=== PATIENT | female | born 1950 | race Caucasian/White ===

== ENCOUNTER 2019-05-29 11:27 | Inpatient (IN) ==
[2019-05-29] MEDS ORDERED: *HR* Heparin 5,000 UNIT/ML VIAL IVP PRN ×2 (13:49)
[2019-05-29] MEDS ORDERED: Naloxone 0.4 MG/ML INJ IVP PRN (13:56)
[2019-05-29] MEDS ORDERED: Heparin 25,000 UNIT/250 ML D5W 25,000 UNIT/250 ML IV.SOLN IVC SCH (14:00)
[2019-05-29] MEDS ORDERED: D5% in Water 1,000 ML IVC PRN (14:01)
[2019-05-29] MEDS ORDERED: Dextrose Gel 15 GM/37.5 ML TUBE PO PRN ×2 (14:01)
[2019-05-29] MEDS ORDERED: *HR* Dextrose 50 % in Water (Syg) 50 ML SYRINGE IVP PRN (14:01)
[2019-05-29] MEDS ORDERED: Nitroglycerin 0.4 MG TAB.SUBL SL PRN (14:23)
[2019-05-29] MEDS ORDERED: Ondansetron ODT 4 MG TAB.RAPDIS SL PRN (14:32)
[2019-05-29 14:39] LABS: Hematocrit 39.5 % (35.3-44.9); Hemoglobin 12.3 g/dL (11.5-15.4); Mean Corpuscular HGB Conc 31.1 g/dL (31.6-35.5); Mean Corpuscular Hemoglobin 28.9 pg (28.0-33.3); Mean Corpuscular Volume 92.9 fL (83.0-100.0); Mean Platelet Volume 10.8 fL (9.4-12.4); Platelet Count 295 K/mcL (140-400); Red Blood Count 4.25 M/mcL (3.82-4.97); Red Cell Distribution Width 13.7 % (11.5-14.5); White Blood Count 16.4 K/mcL (4.3-11.1)
[2019-05-29 14:42] LABS: Heparin anti-factor XA UFH 0.37 IU/mL (0.30-0.70)
[2019-05-29 14:43] LABS: INR 1.1; Prothrombin Time 12.2 Seconds (9.4-12.1)
[2019-05-29] MEDS ORDERED: Nitroglycerin 1 INCH/GM PACKET ONE (16:11)
[2019-05-29] MEDS: Nitroglycerin 0.4 MG PATCH.TD24 TD SCH (16:13)
[2019-05-29] MEDS: Insulin LISPRO 300 UNITS/3 ML VIAL SQ SCH ×2 (17:57→20:02)
[2019-05-29] MEDS ORDERED: Insulin LISPRO 300 UNITS/3 ML VIAL SQ SCH (18:00)
[2019-05-29] MEDS ORDERED: NON-FORMULARY MEDICATION 1 EACH EACH (Ondansetron Hcl [Zofran] 4 MG) PO SCH (21:00)
[2019-05-30 00:13] LABS: Amphetamine Screen,Urine Negative ng/mL (Cutoff=1000); Barbiturate Screen,Urine Negative ng/mL (Cutoff=200); Benzodiazepines Screen,Urine Negative ng/mL (Cutoff=200); Cannabinoid Screen,Urine Negative ng/mL (Cutoff = 50); Cocaine Screen,Urine Negative ng/mL (Cutoff= 300); Opiate Screen,Urine Positive ng/mL (Cutoff=300); Phencyclidine Screen,Urine Negative ng/mL (Cutoff=25)
[2019-05-30 02:32] LABS: Basophils # 0.1 K/mcL (0.0-0.2); Basophils % 0.3 %; Eosinophils # 0.2 K/mcL (0.0-0.6); Eosinophils % 0.8 %; Hematocrit 36.2 % (35.3-44.9); Hemoglobin 11.9 g/dL (11.5-15.4); Immature Granulocytes % 0.4 % (0-4); Lymphocytes # 1.5 K/mcL (0.6-4.6); Lymphocytes % 8.1 %; Mean Corpuscular HGB Conc 32.9 g/dL (31.6-35.5); Mean Corpuscular Hemoglobin 29.2 pg (28.0-33.3); Mean Corpuscular Volume 88.7 fL (83.0-100.0); Mean Platelet Volume 10.8 fL (9.4-12.4); Monocytes % 5.5 %; Neutrophils # 15.9 K/mcL (1.6-8.9); Platelet Count 279 K/mcL (140-400); Red Blood Count 4.08 M/mcL (3.82-4.97); Red Cell Distribution Width 13.7 % (11.5-14.5); Segmented Neutrophils % 84.9 %; White Blood Count 18.7 K/mcL (4.3-11.1)
[2019-05-30 02:53] LABS: BUN/Creatinine Ratio 20 (6-26); Blood Urea Nitrogen 19 mg/dL (8-23); Carbon Dioxide 26 mEq/L (23-29); Chloride 102 mEq/L (98-107); Chol/HDL Ratio 3.9 (0-4.9); Cholesterol 142 mg/dL (< 200); Glucose 125 mg/dL (70-105); HDL Cholesterol 36 mg/dL (40-59); LDL Cholesterol,Calculated 65 mg/dL (0-99); Magnesium 0.8 mg/dL (1.6-2.6); Osmolality,Calculated 290 (280-300); Potassium 3.7 mEq/L (3.5-5.1); Sodium 138 mEq/L (136-145); Triglycerides 205 mg/dL (< 150); eGFR For African Americans > 60 (> 60); eGFR For Non-African Americans 58 (> 60)
[2019-05-30] MEDS: Insulin LISPRO 300 UNITS/3 ML VIAL SQ SCH ×4 (07:36→20:41)
[2019-05-30] MEDS: Nitroglycerin 0.4 MG PATCH.TD24 TD SCH (08:58)
[2019-05-30] MEDS: Aspirin Enteric Coated 81 MG Tablet PO SCH (08:59)
[2019-05-30] MEDS: Fluticasone Propionate Nasal 50 MCG/SPRAY BOTTLE NS SCH (09:06)
[2019-05-30 09:42] LABS: Estimated Average Glucose 180 mg/dl
[2019-05-30] MEDS ORDERED: Heparin 1,000 UNITS/500 mL 500 ML ONE (13:25)
[2019-05-30] MEDS ORDERED: *HR* Heparin 10,000 UNIT/10 ML VIAL ONE (13:25)
[2019-05-30] MEDS ORDERED: ISOVUE-370 200 ML INFUS..BTL ONE ×2 (13:25→14:49)
[2019-05-30] MEDS ORDERED: Nitroglycerin 1,000 MCG/10 ML VIAL IV ONE (13:25)
[2019-05-30] MEDS ORDERED: 0.9 % Sodium Chloride 2,000 ML ONE (13:25)
[2019-05-30] MEDS ORDERED: *HR* Midazolam HCl 2 MG/2 ML VIAL ONE (13:55)
[2019-05-30] MEDS ORDERED: *HR* FentaNYL (PF) 100 MCG/2 ML VIAL ONE (13:56)
[2019-05-30] MEDS ORDERED: *HR* Ticagrelor 90 MG TABLET ONE (14:49)
[2019-05-30] MEDS ORDERED: *HR* Bivalirudin 250 MG VIAL IVC ONE (14:49)
[2019-05-30] MEDS ORDERED: 0.9 % Sodium Chloride 1,000 ML IVC SCH (15:15)
[2019-05-30] MEDS ORDERED: *HR* FentaNYL (PF) 100 MCG/2 ML VIAL IVP ONE (16:22)
[2019-05-30] MEDS ORDERED: *HR* Atropine Sulfate 1 MG/10 ML SYRINGE ONE (18:14)
[2019-05-30] MEDS: *HR* FentaNYL (PF) 100 MCG/2 ML VIAL IVP PRN ×2 (18:33→20:40)
[2019-05-31 07:23] LABS: Basophils % 0.2 %; Eosinophils # 0.1 K/mcL (0.0-0.6); Eosinophils % 0.3 %; Hematocrit 34.1 % (35.3-44.9); Hemoglobin 11.4 g/dL (11.5-15.4); Immature Granulocytes % 0.4 % (0-4); Lymphocytes # 1.5 K/mcL (0.6-4.6); Mean Corpuscular HGB Conc 33.4 g/dL (31.6-35.5); Mean Corpuscular Hemoglobin 29.4 pg (28.0-33.3); Mean Corpuscular Volume 87.9 fL (83.0-100.0); Mean Platelet Volume 10.3 fL (9.4-12.4); Monocytes # 1.4 K/mcL (0.0-1.3); Monocytes % 9.1 %; Neutrophils # 12.2 K/mcL (1.6-8.9); Platelet Count 245 K/mcL (140-400); Red Blood Count 3.88 M/mcL (3.82-4.97); Red Cell Distribution Width 13.9 % (11.5-14.5); White Blood Count 15.2 K/mcL (4.3-11.1)
[2019-05-31] MEDS: Insulin LISPRO 300 UNITS/3 ML VIAL SQ SCH ×4 (08:13→21:06)
[2019-05-31] MEDS: Aspirin Enteric Coated 81 MG Tablet PO SCH (08:14)
[2019-05-31 08:17] LABS: BUN/Creatinine Ratio 18 (6-26); Blood Urea Nitrogen 17 mg/dL (8-23); Calcium 8.1 mg/dL (8.6-10.3); Carbon Dioxide 27 mEq/L (23-29); Chloride 99 mEq/L (98-107); Glucose 147 mg/dL (70-105); Magnesium 0.9 mg/dL (1.6-2.6); Osmolality,Calculated 288 (280-300); Potassium 3.2 mEq/L (3.5-5.1); Sodium 137 mEq/L (136-145); Troponin I 30.92 ng/mL (< 0.04); eGFR For African Americans > 60 (> 60); eGFR For Non-African Americans 58 (> 60)
[2019-05-31] MEDS: Fluticasone Propionate Nasal 50 MCG/SPRAY BOTTLE NS SCH (08:18)
[2019-05-31] MEDS ORDERED: Acetaminophen 325 MG TABLET PO PRN (20:03)
[2019-06-01 01:27] LABS: Basophils # 0.1 K/mcL (0.0-0.2); Basophils % 0.3 %; Eosinophils # 0.2 K/mcL (0.0-0.6); Hematocrit 35.4 % (35.3-44.9); Immature Granulocytes % 0.4 % (0-4); Lymphocytes # 1.9 K/mcL (0.6-4.6); Lymphocytes % 11.9 %; Mean Corpuscular HGB Conc 31.1 g/dL (31.6-35.5); Mean Corpuscular Hemoglobin 28.9 pg (28.0-33.3); Mean Corpuscular Volume 92.9 fL (83.0-100.0); Mean Platelet Volume 10.4 fL (9.4-12.4); Monocytes # 1.3 K/mcL (0.0-1.3); Monocytes % 8.4 %; Neutrophils # 12.1 K/mcL (1.6-8.9); Platelet Count 214 K/mcL (140-400); Red Blood Count 3.81 M/mcL (3.82-4.97); Red Cell Distribution Width 13.9 % (11.5-14.5); White Blood Count 15.6 K/mcL (4.3-11.1)
[2019-06-01 01:43] LABS: Calcium 8.7 mg/dL (8.6-10.3); Potassium 3.4 mEq/L (3.5-5.1)
[2019-06-01] MEDS: Aspirin Enteric Coated 81 MG Tablet PO SCH (08:13)
[2019-06-01] MEDS: Insulin LISPRO 300 UNITS/3 ML VIAL SQ SCH ×4 (08:14→20:45)
[2019-06-01] MEDS: Fluticasone Propionate Nasal 50 MCG/SPRAY BOTTLE NS SCH (08:15)
[2019-06-01] MEDS: 0.9 % Sodium Chloride 1,000 ML IVC SCH (11:34)
[2019-06-01] MEDS ORDERED: 0.9 % Sodium Chloride 1,000 ML IVC SCH (16:00)
[2019-06-02] MEDS: 0.9 % Sodium Chloride 1,000 ML IVC SCH (03:19)
[2019-06-02] MEDS: Aspirin Enteric Coated 81 MG Tablet PO SCH (07:57)
[2019-06-02] MEDS: Insulin LISPRO 300 UNITS/3 ML VIAL SQ SCH ×4 (07:58→21:26)
[2019-06-02] MEDS: Fluticasone Propionate Nasal 50 MCG/SPRAY BOTTLE NS SCH (07:58)
[2019-06-02] MEDS ORDERED: 0.9 % Sodium Chloride 2,000 ML ONE (09:26)
[2019-06-02] MEDS ORDERED: Heparin 1,000 UNITS/500 mL 500 ML ONE (09:26)
[2019-06-02] MEDS ORDERED: ISOVUE-370 200 ML INFUS..BTL ONE (09:27)
[2019-06-02] MEDS ORDERED: *HR* Heparin 10,000 UNIT/10 ML VIAL ONE ×2 (09:27→10:29)
[2019-06-02] MEDS ORDERED: Nitroglycerin 1,000 MCG/10 ML VIAL IV ONE (09:27)
[2019-06-02] MEDS ORDERED: *HR* Midazolam HCl 2 MG/2 ML VIAL ONE (10:14)
[2019-06-02 10:23] LABS: Basophils # 0.1 K/mcL (0.0-0.2); Basophils % 0.4 %; Eosinophils # 0.2 K/mcL (0.0-0.6); Eosinophils % 1.6 %; Hematocrit 32.5 % (35.3-44.9); Hemoglobin 10.4 g/dL (11.5-15.4); Immature Granulocytes % 0.5 % (0-4); Lymphocytes # 1.4 K/mcL (0.6-4.6); Lymphocytes % 12.7 %; Mean Corpuscular Hemoglobin 28.8 pg (28.0-33.3); Monocytes # 0.9 K/mcL (0.0-1.3); Monocytes % 7.8 %; Neutrophils # 8.6 K/mcL (1.6-8.9); Platelet Count 261 K/mcL (140-400); Red Blood Count 3.61 M/mcL (3.82-4.97); White Blood Count 11.2 K/mcL (4.3-11.1)
[2019-06-02] MEDS ORDERED: *HR* FentaNYL (PF) 100 MCG/2 ML VIAL ONE (10:27)
[2019-06-02 10:46] LABS: BUN/Creatinine Ratio 25 (6-26); Blood Urea Nitrogen 26 mg/dL (8-23); Calcium 8.5 mg/dL (8.6-10.3); Carbon Dioxide 25 mEq/L (23-29); Chloride 104 mEq/L (98-107); Glucose 175 mg/dL (70-105); Osmolality,Calculated 299 (280-300); Potassium 3.9 mEq/L (3.5-5.1); Sodium 140 mEq/L (136-145); eGFR For African Americans > 60 (> 60); eGFR For Non-African Americans 52 (> 60)
[2019-06-02] MEDS ORDERED: 0.9 % Sodium Chloride 1,000 ML IVC SCH (12:41)
[2019-06-03 04:59] LABS: Basophils % 0.3 %; Eosinophils # 0.2 K/mcL (0.0-0.6); Eosinophils % 1.8 %; Hemoglobin 9.4 g/dL (11.5-15.4); Immature Granulocytes % 0.3 % (0-4); Lymphocytes # 1.5 K/mcL (0.6-4.6); Lymphocytes % 12.5 %; Mean Corpuscular HGB Conc 31.3 g/dL (31.6-35.5); Mean Corpuscular Hemoglobin 29.4 pg (28.0-33.3); Mean Corpuscular Volume 93.8 fL (83.0-100.0); Mean Platelet Volume 10.9 fL (9.4-12.4); Monocytes % 8.2 %; Platelet Count 236 K/mcL (140-400); Segmented Neutrophils % 76.9 %; White Blood Count 11.7 K/mcL (4.3-11.1)
[2019-06-03 05:16] LABS: BUN/Creatinine Ratio 25 (6-26); Blood Urea Nitrogen 24 mg/dL (8-23); Calcium 7.9 mg/dL (8.6-10.3); Carbon Dioxide 22 mEq/L (23-29); Chloride 103 mEq/L (98-107); Glucose 220 mg/dL (70-105); Osmolality,Calculated 293 (280-300); Potassium 3.8 mEq/L (3.5-5.1); Sodium 136 mEq/L (136-145); eGFR For African Americans > 60 (> 60); eGFR For Non-African Americans 58 (> 60)
[2019-06-03] MEDS: Insulin LISPRO 300 UNITS/3 ML VIAL SQ SCH ×2 (08:43→12:50)
[2019-06-03] MEDS: Fluticasone Propionate Nasal 50 MCG/SPRAY BOTTLE NS SCH (08:44)
[2019-06-03] MEDS ORDERED: Aspirin 81 MG TAB.CHEW PO SCH (09:00)
[2019-06-03 10:25] LABS: Hematocrit 30.9 % (35.3-44.9)
[2019-06-03 11:45] VITALS: BP 107/78
== END 2019-06-03 15:09 | disposition home or self-care (01) | DRG 247 ==
LOC: 2ANU → SUATTDRO 12:05 → 2NNU 05-30 15:22
PROVIDERS: ADMIT Internal Medicine; ATTEND Internal Medicine

== ENCOUNTER 2020-08-04 13:40 | Inpatient (IN) ==
[2020-08-04] MEDS ORDERED: Ondansetron 4 MG/2 ML VIAL IVP PRN (16:22)
[2020-08-04] MEDS ORDERED: Naloxone 0.4 MG/ML INJ IVP PRN (16:22)
[2020-08-04] MEDS ORDERED: Dextrose Gel 15 GM/37.5 ML TUBE PO PRN ×2 (16:29)
[2020-08-04] MEDS ORDERED: D5% in Water 1,000 ML IVC PRN (16:29)
[2020-08-04] MEDS ORDERED: *HR* Dextrose 50 % in Water (Vial) 50 ML VIAL IVP PRN (16:29)
[2020-08-04] MEDS: Furosemide 20 MG/2 ML VIAL IVP SCH (18:17)
[2020-08-04] MEDS: Insulin LISPRO 300 UNITS/3 ML VIAL SUBQ SCH ×2 (18:17→23:58)
[2020-08-04] MEDS: Ipratropium 1 PUFF INHALER IH SCH (20:32)
[2020-08-04] MEDS ORDERED: Insulin DETEMIR 100 UNIT/ML X5UNITS SUBQ SCH ×2 (21:00→23:15)
[2020-08-05] MEDS: Ipratropium 1 PUFF INHALER IH SCH ×7 (00:25→23:50)
[2020-08-05 01:27] LABS: Basophils # 0.1 K/mcL (0.0-0.2); Basophils % 0.2 %; Eosinophils % 0.1 %; Hematocrit 36.4 % (35.3-44.9); Hemoglobin 11.6 g/dL (11.5-15.4); Immature Granulocytes % 1.4 % (0-4); Lymphocytes # 0.6 K/mcL (0.6-4.6); Lymphocytes % 2.6 %; Mean Corpuscular HGB Conc 31.9 g/dL (31.6-35.5); Mean Corpuscular Hemoglobin 28.2 pg (28.0-33.3); Mean Corpuscular Volume 88.6 fL (83.0-100.0); Mean Platelet Volume 10.4 fL (9.4-12.4); Monocytes # 0.3 K/mcL (0.0-1.3); Monocytes % 1.4 %; Neutrophils # 21.2 K/mcL (1.6-8.9); Platelet Count 228 K/mcL (140-400); Red Blood Count 4.11 M/mcL (3.82-4.97); Red Cell Distribution Width 14.3 % (11.5-14.5); Segmented Neutrophils % 94.3 %; White Blood Count 22.5 K/mcL (4.3-11.1)
[2020-08-05 01:38] LABS: INR 1.1; Prothrombin Time 13.1 Seconds (9.4-12.1)
[2020-08-05 01:40] LABS: Activated Partial Thrombo Time 26.8 Seconds (26.0-36.0)
[2020-08-05 01:48] LABS: Platelet Estimate Normal (Normal)
[2020-08-05 01:52] LABS: Albumin 3.3 g/dL (3.5-5.7); Albumin/Globulin Ratio 0.9 (1.1-2.2); Bilirubin,Total 0.3 mg/dL (0.3-1.0); Calcium 8.1 mg/dL (8.6-10.3); Globulin 3.6 g/dL (2.4-3.5); Magnesium 1.1 mg/dL (1.6-2.6); Phosphorous 2.2 mg/dL (2.7-4.5); Potassium 4.1 mEq/L (3.5-5.1); Total Protein 6.9 g/dL (6.4-8.9)
[2020-08-05] MEDS: *HR* Enoxaparin 40 MG/0.4 ML SYRINGE SQ SCH (05:09)
[2020-08-05 08:15] LABS: ABG Base Excess 2 mEq/L (-2 to 3); ABG HCO3 25 mEq/L (21-27); ABG Oxygen Saturation 93 % (95-98); ABG PCO2 36 mmHg (35-45); ABG PH 7.46 pH Units (7.32-7.45); ABG PO2 62 mmHg (85-104); ABG TCO2 26 mEq/L (20-26)
[2020-08-05] MEDS: Insulin DETEMIR 100 UNIT/ML X5UNITS SUBQ SCH ×2 (08:35→21:30)
[2020-08-05] MEDS: Furosemide 20 MG/2 ML VIAL IVP SCH ×2 (08:36→17:00)
[2020-08-05] MEDS: Insulin LISPRO 300 UNITS/3 ML VIAL SUBQ SCH ×5 (08:37→21:27)
[2020-08-05] MEDS ORDERED: levoFLOXacin 750 MG/150 ML 750 MG/150 ML BAG IVPB SCH (09:00)
[2020-08-05] MEDS ORDERED: Dexamethasone 4 MG/ML VIAL IVP SCH ×2 (09:00)
[2020-08-05] MEDS: Acetaminophen 325 MG TABLET PO PRN (13:47)
[2020-08-05] MEDS ORDERED: Remdesivir 200 MG in 0.9 % Sodium Chloride 100 ML IVPB ONE (14:00)
[2020-08-05] MEDS ORDERED: Fluticasone Propionate Nasal 50 MCG/SPRAY BOTTLE NS PRN (14:07)
[2020-08-05] MEDS ORDERED: Nitroglycerin 0.4 MG TAB.SUBL SL PRN (14:07)
[2020-08-05] MEDS ORDERED: Dexamethasone 4 MG/ML VIAL IVP ONE (16:53)
[2020-08-05] MEDS ORDERED: Ibuprofen 800 MG TABLET PO ONE (17:36)
[2020-08-06] MEDS: Ipratropium 1 PUFF INHALER IH SCH ×6 (04:16→23:08)
[2020-08-06] MEDS: *HR* Enoxaparin 40 MG/0.4 ML SYRINGE SQ SCH (05:05)
[2020-08-06 05:11] LABS: D-Dimer 2205 ng/mLFEU (0-500)
[2020-08-06 05:14] LABS: Fibrinogen 926 mg/dL (169-393)
[2020-08-06 05:31] LABS: Calcium 8.6 mg/dL (8.6-10.3); Magnesium 1.8 mg/dL (1.6-2.6); Phosphorous 3.5 mg/dL (2.7-4.5)
[2020-08-06] MEDS: DilTIAZem CD (24hr) 120 MG CAP.ER.24H PO SCH ×2 (06:45→08:16)
[2020-08-06] MEDS ORDERED: Magnesium Sulfate 1 GM/102 ML PIGGYBACK IVPB ONE (07:29)
[2020-08-06] MEDS: Dexamethasone 4 MG/ML VIAL IVP SCH (07:36)
[2020-08-06] MEDS: Ascorbic Acid 500 MG TABLET PO SCH (07:37)
[2020-08-06] MEDS: Aspirin Enteric Coated 81 MG Tablet PO SCH (07:38)
[2020-08-06] MEDS: Acetaminophen 325 MG TABLET PO PRN ×3 (07:38→21:46)
[2020-08-06] MEDS: Loratadine 10 MG TABLET PO SCH (07:38)
[2020-08-06] MEDS: DilTIAZem 50 MG/50 ML IV.SOLN IVC SCH (08:10)
[2020-08-06] MEDS: Furosemide 20 MG/2 ML VIAL IVP SCH ×2 (08:15→16:19)
[2020-08-06] MEDS: Insulin LISPRO 300 UNITS/3 ML VIAL SUBQ SCH ×7 (08:48→21:44)
[2020-08-06] MEDS ORDERED: *HR* Enoxaparin 60 MG/0.6 ML SYRINGE SQ ONE (08:52)
[2020-08-06] MEDS: Insulin DETEMIR 100 UNIT/ML X5UNITS SUBQ SCH ×2 (09:04→21:30)
[2020-08-06 10:37] LABS: Troponin I 0.04 ng/mL (< 0.04)
[2020-08-06 12:20] LABS: Albumin 3.5 g/dL (3.5-5.7); Albumin/Globulin Ratio 0.8 (1.1-2.2); Bilirubin,Direct 0.2 mg/dL (0.0-0.2); Bilirubin,Indirect 0.3 mg/dL (0.0-1.0); Bilirubin,Total 0.5 mg/dL (0.3-1.0); Globulin 4.2 g/dL (2.4-3.5); Total Protein 7.7 g/dL (6.4-8.9)
[2020-08-06] MEDS: Remdesivir 100 MG in 0.9 % Sodium Chloride 100 ML IVPB SCH (15:08)
[2020-08-06] MEDS: *HR* Enoxaparin 100 MG/ML SYRINGE SQ SCH (21:21)
[2020-08-07] MEDS: Ipratropium 1 PUFF INHALER IH SCH ×6 (03:36→23:37)
[2020-08-07 06:07] LABS: Albumin 3.4 g/dL (3.5-5.7); Albumin/Globulin Ratio 0.9 (1.1-2.2); Bilirubin,Total 0.4 mg/dL (0.3-1.0); Calcium 8.8 mg/dL (8.6-10.3); Magnesium 2.1 mg/dL (1.6-2.6); Phosphorous 3.7 mg/dL (2.7-4.5); Potassium 3.7 mEq/L (3.5-5.1); Total Protein 7.4 g/dL (6.4-8.9)
[2020-08-07 06:16] LABS: Hematocrit 38.2 % (35.3-44.9); Hemoglobin 12.5 g/dL (11.5-15.4); Mean Corpuscular HGB Conc 32.7 g/dL (31.6-35.5); Mean Corpuscular Hemoglobin 28.6 pg (28.0-33.3); Mean Corpuscular Volume 87.4 fL (83.0-100.0); Platelet Count 390 K/mcL (140-400); Red Blood Count 4.37 M/mcL (3.82-4.97); Red Cell Distribution Width 14.2 % (11.5-14.5); White Blood Count 17.7 K/mcL (4.3-11.1)
[2020-08-07 07:35] LABS: Lymphocytes # 0.7 K/mcL (0.6-4.6); Monocytes # 0.4 K/mcL (0.0-1.3); Neutrophils # 16.6 K/mcL (1.6-8.9); Platelet Estimate Normal (Normal)
[2020-08-07] MEDS: DilTIAZem 50 MG/50 ML IV.SOLN IVC SCH (08:01)
[2020-08-07] MEDS: Insulin LISPRO 300 UNITS/3 ML VIAL SUBQ SCH ×7 (08:33→20:59)
[2020-08-07] MEDS: Dexamethasone 4 MG/ML VIAL IVP SCH (08:35)
[2020-08-07] MEDS: levoFLOXacin 750 MG/150 ML 750 MG/150 ML BAG IVPB SCH (08:37)
[2020-08-07] MEDS: Aspirin Enteric Coated 81 MG Tablet PO SCH (08:37)
[2020-08-07] MEDS: Furosemide 20 MG/2 ML VIAL IVP SCH ×2 (08:37→18:25)
[2020-08-07] MEDS: Loratadine 10 MG TABLET PO SCH (08:38)
[2020-08-07] MEDS: *HR* Enoxaparin 100 MG/ML SYRINGE SQ SCH ×2 (08:38→20:48)
[2020-08-07] MEDS: Ascorbic Acid 500 MG TABLET PO SCH (08:38)
[2020-08-07] MEDS: DilTIAZem CD (24hr) 180 MG CAP.ER.24H PO SCH (08:38)
[2020-08-07] MEDS: Insulin DETEMIR 100 UNIT/ML X5UNITS SUBQ SCH ×2 (08:40→20:47)
[2020-08-07] MEDS: Acetaminophen 325 MG TABLET PO PRN ×2 (12:26→19:00)
[2020-08-07] MEDS: Remdesivir 100 MG in 0.9 % Sodium Chloride 100 ML IVPB SCH (14:54)
[2020-08-07] MEDS ORDERED: 0.9 % Sodium Chloride 250 ML ONE (18:11)
[2020-08-07] MEDS ORDERED: methylPREDNISolone 125 MG/2 ML VIAL ONE (19:33)
[2020-08-07] MEDS ORDERED: methylPREDNISolone 125 MG/2 ML VIAL IVP ONE (19:34)
[2020-08-07] MEDS ORDERED: Famotidine 20 MG/2 ML VIAL IVP ONE (19:34)
[2020-08-07 20:14] LABS: Bilirubin,Urine Negative (Negative); Blood,Urine Small (Negative); Clarity,Urine Clear (Clear); Color,Urine Light-Yellow (Yellow); Glucose,Urine (UA) Normal (Normal); Ketones,Urine Negative (Negative); Leukocyte Esterase,Urine Negative (Negative); Nitrite,Urine Negative (Negative); Protein,Urine 30 mg/dL (Neg-Trace); RBC,Urine 30-50 per hpf (0-3); Specific Gravity,Urine 1.026 (1.010-1.025); Squamous Epithelial Cell,Urine Few per hpf (None-Few); Urobilinogen,Urine Normal (Normal); WBC,Urine 0-3 per hpf (0-3)
[2020-08-07] MEDS ORDERED: *HR* LORazepam 1 MG TABLET PO ONE (20:31)
[2020-08-08] MEDS: Ipratropium 1 PUFF INHALER IH SCH ×6 (03:59→23:38)
[2020-08-08 05:31] LABS: Basophils # 0.1 K/mcL (0.0-0.2); Basophils % 0.3 %; Hematocrit 39.2 % (35.3-44.9); Hemoglobin 12.9 g/dL (11.5-15.4); Immature Granulocytes % 1.2 % (0-4); Lymphocytes # 1.1 K/mcL (0.6-4.6); Lymphocytes % 4.7 %; Mean Corpuscular HGB Conc 32.9 g/dL (31.6-35.5); Mean Corpuscular Hemoglobin 27.9 pg (28.0-33.3); Mean Corpuscular Volume 84.7 fL (83.0-100.0); Mean Platelet Volume 10.2 fL (9.4-12.4); Monocytes # 0.6 K/mcL (0.0-1.3); Monocytes % 2.5 %; Neutrophils # 21.6 K/mcL (1.6-8.9); Platelet Count 411 K/mcL (140-400); Red Blood Count 4.63 M/mcL (3.82-4.97); Red Cell Distribution Width 14.1 % (11.5-14.5); Segmented Neutrophils % 91.3 %; White Blood Count 23.7 K/mcL (4.3-11.1)
[2020-08-08 05:35] LABS: Fibrinogen 559 mg/dL (169-393)
[2020-08-08 05:37] LABS: D-Dimer 1689 ng/mLFEU (0-500)
[2020-08-08 05:51] LABS: Calcium 8.2 mg/dL (8.6-10.3); Potassium 3.7 mEq/L (3.5-5.1)
[2020-08-08] MEDS: Dexamethasone 4 MG/ML VIAL IVP SCH (08:00)
[2020-08-08] MEDS: Aspirin Enteric Coated 81 MG Tablet PO SCH (08:01)
[2020-08-08] MEDS: DilTIAZem CD (24hr) 180 MG CAP.ER.24H PO SCH (08:01)
[2020-08-08] MEDS: Insulin DETEMIR 100 UNIT/ML X5UNITS SUBQ SCH (08:01)
[2020-08-08] MEDS: Loratadine 10 MG TABLET PO SCH (08:01)
[2020-08-08] MEDS: Ascorbic Acid 500 MG TABLET PO SCH (08:01)
[2020-08-08] MEDS: *HR* Enoxaparin 100 MG/ML SYRINGE SQ SCH ×2 (08:01→19:36)
[2020-08-08] MEDS: Insulin LISPRO 300 UNITS/3 ML VIAL SUBQ SCH ×7 (08:02→19:58)
[2020-08-08] MEDS: Acetaminophen 325 MG TABLET PO PRN ×2 (08:17→15:08)
[2020-08-08] MEDS: Remdesivir 100 MG in 0.9 % Sodium Chloride 100 ML IVPB SCH (14:56)
[2020-08-08] MEDS: Nystatin POWDER 30 GM BOTTLE TP SCH (14:57)
[2020-08-08] MEDS: Melatonin 3 MG TABLET PO SCH (19:35)
[2020-08-08] MEDS: Artificial Tears SOLN 15 ML BOTTLE BOTH EYES PRN (19:59)
[2020-08-08] MEDS ORDERED: Insulin DETEMIR 100 UNIT/ML X5UNITS SUBQ SCH (21:00)
[2020-08-09] MEDS: Acetaminophen 325 MG TABLET PO PRN ×4 (00:43→20:48)
[2020-08-09] MEDS: Nystatin POWDER 30 GM BOTTLE TP SCH ×4 (00:47→20:56)
[2020-08-09] MEDS: Ipratropium 1 PUFF INHALER IH SCH ×6 (04:33→23:18)
[2020-08-09 05:27] LABS: Basophils % 0.2 %; Hematocrit 37.6 % (35.3-44.9); Hemoglobin 12.4 g/dL (11.5-15.4); Immature Granulocytes % 1.3 % (0-4); Lymphocytes # 0.9 K/mcL (0.6-4.6); Lymphocytes % 4.7 %; Mean Corpuscular Hemoglobin 28.6 pg (28.0-33.3); Mean Corpuscular Volume 86.8 fL (83.0-100.0); Mean Platelet Volume 10.2 fL (9.4-12.4); Monocytes # 0.9 K/mcL (0.0-1.3); Neutrophils # 16.7 K/mcL (1.6-8.9); Platelet Count 389 K/mcL (140-400); Red Blood Count 4.33 M/mcL (3.82-4.97); Red Cell Distribution Width 13.7 % (11.5-14.5); Segmented Neutrophils % 88.8 %; White Blood Count 18.8 K/mcL (4.3-11.1)
[2020-08-09 05:48] LABS: Calcium 8.2 mg/dL (8.6-10.3); Magnesium 2.1 mg/dL (1.6-2.6); Phosphorous 3.9 mg/dL (2.7-4.5); Potassium 3.8 mEq/L (3.5-5.1)
[2020-08-09 06:11] LABS: Anisocytosis 1+ (Not Present); Platelet Estimate Normal (Normal); Reactive Lymphocytes Present (Not Present)
[2020-08-09] MEDS: *HR* Enoxaparin 100 MG/ML SYRINGE SQ SCH ×2 (08:47→20:44)
[2020-08-09] MEDS: Dexamethasone 4 MG/ML VIAL IVP SCH (08:48)
[2020-08-09] MEDS: Aspirin Enteric Coated 81 MG Tablet PO SCH (08:50)
[2020-08-09] MEDS: Loratadine 10 MG TABLET PO SCH (08:50)
[2020-08-09] MEDS: Ascorbic Acid 500 MG TABLET PO SCH (08:50)
[2020-08-09] MEDS: DilTIAZem CD (24hr) 180 MG CAP.ER.24H PO SCH (08:50)
[2020-08-09] MEDS: Insulin LISPRO 300 UNITS/3 ML VIAL SUBQ SCH ×7 (08:51→20:56)
[2020-08-09] MEDS: Insulin DETEMIR 100 UNIT/ML X5UNITS SUBQ SCH ×2 (08:52→20:45)
[2020-08-09] MEDS: levoFLOXacin 750 MG/150 ML 750 MG/150 ML BAG IVPB SCH (08:52)
[2020-08-09 10:25] LABS: Albumin 3.2 g/dL (3.5-5.7); Albumin/Globulin Ratio 0.9 (1.1-2.2); Bilirubin,Direct 0.1 mg/dL (0.0-0.2); Bilirubin,Indirect 0.3 mg/dL (0.0-1.0); Bilirubin,Total 0.4 mg/dL (0.3-1.0); Globulin 3.6 g/dL (2.4-3.5); Total Protein 6.8 g/dL (6.4-8.9)
[2020-08-09] MEDS: Remdesivir 100 MG in 0.9 % Sodium Chloride 100 ML IVPB SCH (14:09)
[2020-08-09] MEDS: Melatonin 3 MG TABLET PO SCH (20:44)
[2020-08-09] MEDS: Artificial Tears SOLN 15 ML BOTTLE BOTH EYES PRN (20:55)
[2020-08-10 03:29] LABS: Basophils % 0.2 %; Hematocrit 34.7 % (35.3-44.9); Hemoglobin 11.6 g/dL (11.5-15.4); Immature Granulocytes % 1.3 % (0-4); Lymphocytes # 0.8 K/mcL (0.6-4.6); Lymphocytes % 3.9 %; Mean Corpuscular HGB Conc 33.4 g/dL (31.6-35.5); Mean Corpuscular Hemoglobin 28.7 pg (28.0-33.3); Mean Corpuscular Volume 85.9 fL (83.0-100.0); Mean Platelet Volume 10.2 fL (9.4-12.4); Monocytes # 1.4 K/mcL (0.0-1.3); Monocytes % 6.9 %; Neutrophils # 18.2 K/mcL (1.6-8.9); Platelet Count 425 K/mcL (140-400); Red Blood Count 4.04 M/mcL (3.82-4.97); Red Cell Distribution Width 13.5 % (11.5-14.5); Segmented Neutrophils % 87.7 %; White Blood Count 20.8 K/mcL (4.3-11.1)
[2020-08-10] MEDS: Acetaminophen 325 MG TABLET PO PRN ×3 (03:40→15:09)
[2020-08-10 03:41] LABS: Calcium 8.3 mg/dL (8.6-10.3); Magnesium 1.8 mg/dL (1.6-2.6); Phosphorous 2.4 mg/dL (2.7-4.5)
[2020-08-10] MEDS: Ipratropium 1 PUFF INHALER IH SCH ×6 (03:43→23:43)
[2020-08-10] MEDS: Insulin DETEMIR 100 UNIT/ML X5UNITS SUBQ SCH (09:00)
[2020-08-10] MEDS: Loratadine 10 MG TABLET PO SCH (09:01)
[2020-08-10] MEDS: Dexamethasone 4 MG/ML VIAL IVP SCH (09:01)
[2020-08-10] MEDS: DilTIAZem CD (24hr) 180 MG CAP.ER.24H PO SCH (09:01)
[2020-08-10] MEDS: Ascorbic Acid 500 MG TABLET PO SCH (09:01)
[2020-08-10] MEDS: *HR* Enoxaparin 100 MG/ML SYRINGE SQ SCH ×2 (09:01→22:39)
[2020-08-10] MEDS: Aspirin Enteric Coated 81 MG Tablet PO SCH (09:01)
[2020-08-10] MEDS: Insulin LISPRO 300 UNITS/3 ML VIAL SUBQ SCH ×7 (09:02→22:07)
[2020-08-10] MEDS: Nystatin POWDER 30 GM BOTTLE TP SCH ×3 (09:02→22:54)
[2020-08-10] MEDS: Furosemide 20 MG/2 ML VIAL IVP SCH ×3 (12:45→15:09)
[2020-08-10] MEDS ORDERED: MethylPREDNISolone 40 MG/ML VIAL IVP ONE (18:36)
[2020-08-10] MEDS ORDERED: Insulin DETEMIR 100 UNIT/ML X5UNITS SUBQ SCH (21:00)
[2020-08-10] MEDS ORDERED: Vancomycin 1,250 MG/262.5 ML IV.SOLN IVPB SCH (21:00)
[2020-08-10 21:24] LABS: INR 1.2; Prothrombin Time 13.6 Seconds (9.4-12.1)
[2020-08-10 21:27] LABS: Activated Partial Thrombo Time 29.8 Seconds (26.0-36.0)
[2020-08-10] MEDS: Melatonin 3 MG TABLET PO SCH (22:53)
[2020-08-11] MEDS ORDERED: FentaNYL (PF) 1,000 MCG/100 ML IV.SOLN IVC SCH
[2020-08-11] MEDS ORDERED: Lidocaine Jelly 6ml 1 APPL/6 ML JEL.PF.APP ONE ×2 (00:12→00:38)
[2020-08-11] MEDS ORDERED: Lidocaine -MPF 4% 5 ML AMPUL ONE (00:12)
[2020-08-11] MEDS ORDERED: Lidocaine 5% OINT 35 APPL/35.44 GM TUBE TP ONE (00:15)
[2020-08-11] MEDS ORDERED: *HR* FentaNYL (PF) 100 MCG/2 ML VIAL ONE (00:36)
[2020-08-11] MEDS ORDERED: *HR* Propofol 200 MG/20 ML VIAL IVP ONE (00:37)
[2020-08-11] MEDS ORDERED: *HR* Midazolam HCl 2 MG/2 ML VIAL ONE (00:37)
[2020-08-11] MEDS ORDERED: *HR* PHENYLEPHRINE 1,000 MCG/10 ML SYRINGE IVP ONE (01:21)
[2020-08-11] MEDS ORDERED: Artificial Tears SOLN 15 ML BOTTLE BOTH EYES PRN (02:06)
[2020-08-11] MEDS ORDERED: 0.9 % Sodium Chloride 500 ML IVC ONE (02:33)
[2020-08-11 02:54] LABS: ABG Base Excess 0 mEq/L (-2 to 3); ABG HCO3 25 mEq/L (21-27); ABG Oxygen Saturation 100 % (95-98); ABG PCO2 39 mmHg (35-45); ABG PH 7.42 pH Units (7.32-7.45); ABG PO2 209 mmHg (85-104); ABG TCO2 26 mEq/L (20-26); Blood Gas Modality ASSIST CONTROL; Blood Gas VT 480 cc
[2020-08-11] MEDS: Artificial Tears SOLN 15 ML BOTTLE BOTH EYES SCH ×3 (03:01→12:17)
[2020-08-11] MEDS: Ipratropium 1 PUFF INHALER IH SCH ×3 (03:40→11:40)
[2020-08-11 03:59] LABS: Basophils % 0.1 %; Hematocrit 26.8 % (35.3-44.9); Immature Granulocytes % 1.2 % (0-4); Lymphocytes # 0.7 K/mcL (0.6-4.6); Lymphocytes % 4.8 %; Mean Corpuscular HGB Conc 33.2 g/dL (31.6-35.5); Mean Corpuscular Hemoglobin 28.9 pg (28.0-33.3); Mean Platelet Volume 10.6 fL (9.4-12.4); Monocytes # 0.7 K/mcL (0.0-1.3); Monocytes % 5.4 %; Neutrophils # 12.1 K/mcL (1.6-8.9); Platelet Count 332 K/mcL (140-400); Red Blood Count 3.08 M/mcL (3.82-4.97); Red Cell Distribution Width 13.5 % (11.5-14.5); Segmented Neutrophils % 88.5 %; White Blood Count 13.6 K/mcL (4.3-11.1)
[2020-08-11 04:04] LABS: INR 1.2; Prothrombin Time 13.6 Seconds (9.4-12.1)
[2020-08-11 04:06] LABS: Activated Partial Thrombo Time 27.3 Seconds (26.0-36.0)
[2020-08-11 04:07] LABS: Hemoglobin 8.9 g/dL (11.5-15.4)
[2020-08-11 04:18] LABS: Albumin 2.7 g/dL (3.5-5.7); Albumin/Globulin Ratio 1.1 (1.1-2.2); Bilirubin,Direct 0.2 mg/dL (0.0-0.2); Bilirubin,Indirect 0.3 mg/dL (0.0-1.0); Bilirubin,Total 0.5 mg/dL (0.3-1.0); Calcium 7.5 mg/dL (8.6-10.3); Globulin 2.5 g/dL (2.4-3.5); Magnesium 1.7 mg/dL (1.6-2.6); Phosphorous 3.7 mg/dL (2.7-4.5); Potassium 3.6 mEq/L (3.5-5.1); Total Protein 5.2 g/dL (6.4-8.9)
[2020-08-11] MEDS: Insulin LISPRO 300 UNITS/3 ML VIAL SUBQ SCH ×3 (04:45→12:22)
[2020-08-11] MEDS ORDERED: Pantoprazole 40 MG VIAL IVP SCH (06:30)
[2020-08-11] MEDS ORDERED: Isovue-370 500 ML BOTTLE IVP ONE (08:00)
[2020-08-11] MEDS: Furosemide 20 MG/2 ML VIAL IVP SCH (08:07)
[2020-08-11] MEDS ORDERED: *HR* Metoprolol 5 MG/5 ML VIAL IVP PRN (08:54)
[2020-08-11] MEDS ORDERED: Chlorhexidine Rinse 15 ML MOUTHWASH MM SCH (09:00)
[2020-08-11] MEDS ORDERED: Dexamethasone 4 MG/ML VIAL IVP ONE (09:48)
[2020-08-11] MEDS ORDERED: Cefepime HCl 1,000 MG in Water for inj. (sterile) 10 ML IVP SCH (10:00)
[2020-08-11 11:12] LABS: Hematocrit 27.7 % (35.3-44.9); Hemoglobin 9.2 g/dL (11.5-15.4)
[2020-08-11] MEDS ORDERED: MetroNIDAZOLE 500 MG/100 ML 500 MG/100 ML BAG IVPB SCH (12:00)
[2020-08-11 14:28] VITALS: BP 92/71
[2020-08-11] MEDS ORDERED: Meropenem 1,000 MG in 0.9 % Sodium Chloride Mini Bag 100 ML IVPB SCH (22:00)
[2020-08-12] MEDS ORDERED: Dexamethasone 4 MG/ML VIAL IVP SCH (09:00)
== END 2020-08-11 15:10 | disposition short-term general hospital (02) | DRG 871 ==
LOC: 2NENU → SUATTDRO 15:46 → ICNU 08-10 23:36
PROVIDERS: ADMIT Internal Medicine; ATTEND Internal Medicine